=== PATIENT | female | born 2005 | race Caucasian/White ===

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

== ENCOUNTER 2023-07-11 11:02 | Outpatient (REF) | payer OTHER, SELFPAY ==
[2023-07-12 12:43] LABS: Chlamydia Result Negative (Negative); GC Result Negative (Negative)
== END 2023-07-11 11:03 | disposition home or self-care (01) ==
LOC: LBN 11:02
PROVIDERS: PCP Nurse Practitioner; Visit Provider Obstetrics & Gynecology Gynecology
DX: Z11.3 Encounter for screening for infections with a predominantly sexual mode of transmission (principal)
CPT/HCPCS: 87491; 87591